=== PATIENT | male | born 1945 | race African-American/Black ===

== ENCOUNTER 2017-07-22 04:04 | Inpatient (IN) | payer OTHER ==
[~2017-07-22] VITALS: Ht 175.3 cm; Wt 102.1 kg
[~2017-07-22 04:04] MED LIST: ASPIR 8181 MG PO; ATORVASTATIN CA40 MG PO; CARVEDILOL3.125 MG PO; CARVEDILOL6.25 MG PO; COREG6.25 MG PO; COUMADIN 5 MG TA5 M1 PO; LANTUS100 UNIT/M SUBQ; LIORESAL 10 MG10 MG PO; LIPITOR 20 MG T20 M1 PO; LISINOPRIL; LISINOPRIL40 MG PO; METFORMIN HCL500 MG PO; NIFEDIPINE ER30 MG PO; NOVOLIN R100 UNIT/1 SUBQ; ZOCOR20 MG
[2017-07-22 04:07] VITALS: BP 188/95
[2017-07-22 04:27] LABS: ABSOLUTE EOSINOPHILS 0.1 thou/uL (0.0-0.7); ABSOLUTE LYMPHOCYTES 2.5 thou/uL (0.8-5.3); ABSOLUTE MONOCYTES 0.6 thou/uL (0.0-1.2); ABSOLUTE NEUTROPHILS 4.9 thou/uL (1.6-8.1); BASOPHILS 0.5 %; EOSINOPHILS 0.8 %; HEMATOCRIT 38.5 % (42.0-52.0); HEMOGLOBIN 12.8 gm/dL (14.0-18.0); MCH 29.1 pg (26.0-34.0); MCHC 33.2 g/dL (28.0-37.0); MCV 87.7 fL (80.0-100.0); MONOCYTES 6.9 %; MPV 8.5 fl. (7.2-11.1); NUCLEATED RBCS 0 /100WBC; PLATELET COUNT* 330 thou/uL (150-400); POLYS 60.8 %; RDW-CV 14.3 % (10.5-14.5); WBC 8.1 thou/uL (4.0-11.0)
[2017-07-22 04:31] LABS: CALCIUM 9.3 mg/dL (8.5-10.1); CREATININE 1.3 mg/dL (0.6-1.3); POTASSIUM 4.7 mmol/L (3.5-5.1)
[2017-07-22 04:41] LABS: APTT 31.7 Seconds (25.0-31.3); INR 2.6; PROTIME 24.8 Seconds (9.20-11.50)
[2017-07-22 04:42] LABS: ALBUMIN 3.2 g/dL (3.4-5.0); TOTAL BILIRUBIN 0.3 mg/dL (<0.1-1.0); TOTAL PROTEIN 7.3 g/dL (6.4-8.2); TROPONIN-I LEVEL 0.07 ng/mL (<0.06)
[2017-07-22 05:55] VITALS: BP 132/85
[2017-07-22 06:00] VITALS: BP 127/66
[2017-07-22] MEDS ORDERED: ZESTRIL40 MG PO (06:18)
[2017-07-22] MEDS ORDERED: BRILINTA90 MG PO (06:19)
--- NOTE | 2017-07-22 07:03 | NUR ---
PATIENT TO UNIT FROM ER, ASSUMED CARE AT 0600. ADMISSION COMPLETED CHARTED. PATIENT ALERT/ORIENTED X4, FAMILY AT BEDSIDE. MEDS GIVEN PER MAR. DENIES PAIN OR NEEDS. UP AD LANCE IN ROOM. REFUSING SCD'S. ORIENTED TO CALL LIGHT, STAFF, AND BED CONTROLS. CALL LIGHT WITHIN REACH, ENCOURAGED TO CALL FOR NEEDS.
--- NOTE | 2017-07-22 07:52 | NUR ---
MALINA, INCINERATOR ATTENDANT ON FLOOR, NOTIFIED OF ELEVATED TROPONIN. REPORT GIVEN TO ONCOMING NURSE. REMAINS NPO. WILL MONITOR.
[2017-07-22 08:03] VITALS: BP 123/79
[2017-07-22 09:22] LABS: CHOLESTEROL 118 mg/dL (<200); HDL CHOLESTEROL 35 mg/dL (>40); LDL CHOLESTEROL 72 mg/dL (<100); TC:HDL 3.4 Ratio (Not establshd); TRIGLYCERIDE 56 mg/dL (<150); VLDL 11 mg/dL (<40)
[2017-07-22 09:23] LABS: SERUM ASSESSMENT Clear
--- NOTE | 2017-07-22 10:13 | NUR ---
ASSUMED CARE OF PT THIS AM AROUND 0715- DIAGNOSTICS TECH IN PLACE ORDERED, TRACING SR WITH PVC'S- UPON ASSESSMENT PT NOTED TO BE RESTING IN BED, FAMILY AT SIDE- PT A&0 X4- CONTINENT OF BOWEL AND BLADDER- UP AD-LANCE IN ROOM, STEADY GAIT NOTED- LCTA, RESP EVEN AND UN-LAABORED- DYSPNEA REPORTED ON EXERTION- VSS, O2 SAT 93% ON RA-ABDOMEN SOFT/ROUND/NON-TENDER, BS X4 QUADS- PT REPORTS LAST BM 07/21/17- TRACE EDEMA NOTED TO BLE- HX STENT PLACED X1 WEEK AGO, RIGHT GROIN C/D/I WITH OUT HEMATOMA- IV NOTED TO RIGHT HAND, SL- BS MONITORED ORDERED- PT CURRENTLY NPO PENDING CV CONSULT- SSI HELD THIS AM R/T NPO STATUS, METFORMIN CURRENTLY ON HOLD R/T CTA WITH CONTRAST THIS AM- PT DENIES ANY C/O PAIN/DISCOMFORT AT THIS TIME- CALL LIGHT AND PERSONAL BELONGINGS WITH IN REACH0 HOURLY ROUNDS IN PLACE R/T SAFETY/NEEDS- ALL NEEDS MET AT THIS TIME-WCTM
[2017-07-22 12:00] VITALS: BP 120/72
--- NOTE | 2017-07-22 14:35 | NUR ---
CM SPOKE TO THE PATIENT TO DISCUSS HOME SITUATION, DISCHARGE PLANNING, AND TO INFORM OF THE ROLE OF CM. PATIENT ALERT AND ORIENTED. PATIENT RESIDES AT HOME WITH . PATIENT OWNS 0 DME. PATIENT HAS NO HX OF OR SNF. PATIENT PLANS TO RETURN HOME AT DISCHARGE. CM WILL REMAIN AVAILABLE TO ASSIST AND FOLLOW NEEDED.
--- NOTE | 2017-07-22 15:26 | EKG ---
[place] [address] ELECTROCARDIOGRAM REPORT Name: CARLOS DICKSON Room: [address] ADM IN .R.#: [id number] Admission: 07/22/17 Attend Phys: Carlos Small MD Discharge: Date of : 43 Report #: [id number] THIS REPORT FOR: //name// [facility] ED Test Date: 2017-07-22 Test Time: 04:05:34 Pat Name: CARLOS DICKSON Department: Room: [facility] Gender: M Graduate Advisor: : 1945 Requested By: Leonard Hernández Order Number: [id number] MD: Rodney Nash Measurements Intervals [place] Rate: 106 P: 46 LA: 179 QRS: 17 QRSD: 84 T: 176 QT: 358 QTc: 476 Interpretive Statements Sinus tachycardia Probable left atrial enlargement Abnrm T, consider ischemia, anterolateral lds Minimal ST elevation, lateral leads Compared to ECG 07/07/2017 11:02:58 Possible ischemia now present ST (T wave) deviation now present Sinus rhythm no longer present Myocardial infarct finding no longer present Electronically Signed On 07-22-2017 15:26:22 AIRCRAFT CLEAN[employer] by Rodney Nash [email or web address] <ELECTRONICALLY SIGNED> By: Rodney Nash MD, FAC 07/22/17 1526 0405 0405 Rodney aNsh MD, [facility] /EPI
--- NOTE | 2017-07-22 16:06 | CARDNUC ---
[place] [address] CARDIAC NUCLEAR IMAGING REPORT Name: CARLOS DICKSON Room: [address] IN [facility]#: [id number] Admission: 07/22/17 Attend Phys: Carlos Small, Discharge: Date of : 43 Date of Service: 07/22/17 1606 Report #: [id number] THIS REPORT FOR: //name// APPROVED REPORT Exam: Nuclear Stress Test Indication: Dyspnea, shoulder pain, elevated troponin Patient Location: In-Patient Stress Tech: Drea Dent Stress Nurse: Nia Hassan RN Ht: 5 ft 9 in Wt: 225 lbs BSA: 2.17 m2 BMI: 33.2 Medical History Medical History: mi, pci, age, hyperlipidemia, htm dm family history Medications: carvedilol, aspirin, atrovastatin, lisinopril, ticagrelor Allergies: nkda Cardiac Risk Factors: Age, FHX of CAD, HTN, Hyperlipidemia, Past Smoker Previous Cardiac Procedures: PCI, Myocardial infarction consulted with anna giron np and dr nash regarding elevated troponin. Okay to do stress test per both NM EXAM: Myocardial Perfusion REST/STRESS Imaging Protocol: Stress Tc-99m/Rest Tc-99m 2 days Pharmacologic Stress Pharmacologic stress test was performed by injecting Regadenoson 0.4 mg IV push followed by the intravenous injection of 38.4 mCi of Tc-99m Sestamibi. Time of stress injection: 1315 Date: 07/22/2017 Administration Route: IV Administration Site: Left AC Gated Stress SPECT was performed 45 minutes after stress injection. The images were gated to evaluate regional wall motion and calculate left ventricular ejection fraction. Prone imaging was performed. Study Quality Study: Good Artifact: [place] [address] CARDIAC NUCLEAR IMAGING REPORT Name: CARLOS DICKSON Room: [address] IN ..#: [id number] Admission: 07/22/17 Attend Phys: Carlos Small, Discharge: Date of : 43 Date of Service: 07/22/17 1606 Report #: [id number] Lung Uptake: Normal Study Data Post stress, the left ventricular ejection was 25%.. Perfusion There is a large, severe distal anterior wall and apical defect with uniform perfusion in other segments. It is severe in intensity. Wall Motion Apical severe hypokinesis and global LV dysfunction Nuclear Conclusion ECG Findings: negative for ischemia Clinical Findings: negative for ischemia Nuclear Findings: positive for ischemia Exercise Capacity: not assessed Left Ventricular Function: abnormal Risk Study: high There is concern for prior anterior and apical myocardial infarction and LV dysfunction is present Interpreted by: ceci Electronically Approved: ceci Stress Test Details Stress Test: Pharmacologic stress testing performed using 0.4 mg of regadenoson per 5 mL given IV over 10 seconds. Reason for pharmacologic stress test: physical limitation. HR Resting HR: 83 bpm Max Heart Rate (APMHR): 147 bpm Max HR Achieved: 94 bpm Target HR (85% APMHR): 124 bpm % of APMHR: 63 Recovery HR: 94 bpm BP Resting BP: 121/84 mmHg Max BP: 113/72 mmHg ECG Clinical Reason for Termination: Completed protocol Stress Symptoms: [place] [address] CARDIAC NUCLEAR IMAGING REPORT Name: CARLOS DICKSON Room: [address]#: [id number] Admission: 07/22/17 Attend Phys: Carlos Small, Discharge: Date of : 43 Date of Service: 07/22/17 160 Report #: [id number] Exercise duration: 0 min sec Exercise capacity: 1 METs Functional Aerobic Impairment 64% Nurse Comments pt tolerated well. pt had numerous pvc,s and pac,s during test. non symptomatic <ELECTRONICALLY SIGNED> By: Rodney Nash MD, [facility] 07/22/17 1606 05 1606 Rodney Nash MD, FACC /INF
--- NOTE | 2017-07-22 19:06 | NUR ---
PT CURRENLTY RESTING IN BED, FAMILY AT SIDE VISITTING- REGIONAL VICE PRESIDENT LIFE SALES IN PLACE ORDERED, TRACING SR- 1ST PART STRESS TEST COMPLETED THIS SHIFT, WITH ABNORMAL RESULTS- VITAMIN K X1 ORDERED AND GIVEN THIS SHIFT, COUMADIN HELD THIS SHIFT- POSSIBLE CATH IN AM, PT TO BE NPO AT MIDNIGHT- IV NOTED TO RIGHT HAND AND NEW PLACED TO RIGHT FA INTACT AND FLUSHING WELL- PT DENIES ANY C/O PAIN/DISCOMFORT AT THIS TIME- BS MONITORED ORDERED, SSI GIVEN PRESCIBED WITH DINNER, GOOD PO INTAKE NOTED- CALL LIGHT AND PERSONAL BELONGINGS WITH IN REACH- ALL NEEDS MET AT THIS TIME-WCTM
[2017-07-22 20:30] VITALS: BP 120/64
[2017-07-23] VITALS (14 sets, daily range): BP systolic 110–138; BP diastolic 60–93
[2017-07-23 05:06] LABS: HEMATOCRIT 37.4 % (42.0-52.0); HEMOGLOBIN 12.4 gm/dL (14.0-18.0); MCH 28.8 pg (26.0-34.0); MCHC 33.1 g/dL (28.0-37.0); MPV 8.7 fl. (7.2-11.1); RBC 4.29 mil/uL (4.50-6.00); RDW-CV 14.2 % (10.5-14.5); WBC 5.3 thou/uL (4.0-11.0)
[2017-07-23 05:11] LABS: INR 1.7; PROTIME 16.6 Seconds (9.20-11.50)
[2017-07-23 05:33] LABS: CALCIUM 9.7 mg/dL (8.5-10.1); CREATININE 1.2 mg/dL (0.6-1.3); MAGNESIUM 2.1 mg/dL (1.8-2.4); POTASSIUM 3.8 mmol/L (3.5-5.1)
--- NOTE | 2017-07-23 08:12 | NUR ---
ASSUMED CARE AT 2030, ASSESSMENT CHARTED. PATIENT ALERT/ORIENTED X4, RESTING IN BED. UP AD LANCE IN ROOM. DENIES PAIN OR NEEDS. NPO AFTER MIDNIGHT FOR POSSIBLE CATH IN AM. REFUSING SCD'S. AT BEDSIDE. CALL LIGHT WITHIN REACH, ENCOURAGED TO CALL FOR NEEDS.
--- NOTE | 2017-07-23 09:03 | NUR ---
PATIENT RESTING IN BED. REMAINS NPO. REPORT GIVEN TO ONCOMING NURSE.
--- NOTE | 2017-07-23 11:08 | NUR ---
ASSUMED RESPONSIBILITY OF PT THIS AM PT LAYING IN BED UPON ARRIVAL DENIES ANY PAIN OR DISCOMFORT AT THIS TIME ALERT AND ORIENTEDX4 AT BEDSIDE NS STARTED AT 75/H LOADING DOSE OF [place] LSCTA RESP EVEN AND NONLABORED [id number] ABD SOFT AND NONTENDER LBM T-1 PT IS NSR ON THE MONITOR PVCS NOTED WELL AND SOME TRIGEMINY NOTED AT TIMES NOTHING BY MOUTH FOR POSSIBLE CATH/STENT THIS AFTERNOON, PLAN ON GETTING HIM IN AN HOUR OR SO METFORMIN IS ON HOLD BS IS 70 AND ORANGE JUICE GIVEN PER CARDIOLOGY NURSE PT IS UP AD LANCE NOT A FALL RISK DENIES ANY SOA
--- NOTE | 2017-07-23 18:04 | NUR ---
PT BACK FROM ROOFING LABORER RIGHT GROIN ANGIOSEAL PT DID GET UP TO GO TO THE BATHROOM REMINDED PT HE WAS ON BEDREST FOR 5 HOURS UNTIL 1830 NO BLEEDING OR HEMATOMA FROM THE CATH SITE BS 202 AT DINNER AND INSULIN GIVEN 3U PT DENIES ANY PAIN OR DISCOMFORT 2 STENTS WERE PLACED IN THE DISTAL LAD
[2017-07-24] VITALS: BP 131/82
[2017-07-24 04:48] VITALS: BP 133/76
[2017-07-24 04:53] LABS: INR 1.2
[2017-07-24 04:56] LABS: HEMATOCRIT 35.8 % (42.0-52.0); MCHC 33.4 g/dL (28.0-37.0); MCV 86.6 fL (80.0-100.0); MPV 8.8 fl. (7.2-11.1); RBC 4.13 mil/uL (4.50-6.00); RDW-CV 14.2 % (10.5-14.5); WBC 4.8 thou/uL (4.0-11.0)
[2017-07-24 04:57] LABS: CALCIUM 9.4 mg/dL (8.5-10.1); CREATININE 1.1 mg/dL (0.6-1.3); MAGNESIUM 2.2 mg/dL (1.8-2.4); POTASSIUM 3.5 mmol/L (3.5-5.1); TROPONIN-I LEVEL 0.1 ng/mL (<0.06)
--- NOTE | 2017-07-24 05:20 | NUR ---
ASSUMED PT CARE AT 1930, PT IS TRACING MNSR ON THE MONITOR, WITH FREQ PVCS. PT IS ON RA SATTING MID TO HIGH 90'S. IVF INFUSING PER MAR. BED IN LOW POSITION, CALL LIGHT IN REACH. PT HAS A CATH ENTRY SITE TO RIGHT GROIN, GROIN IS CDI. HOURLY ROUNDING COMPLETED FOR PT SAFETY.
[2017-07-24 08:05] VITALS: BP 132/81
--- NOTE | 2017-07-24 09:28 | NUR ---
ASSUMED RESPONSIBILITY OF PT THIS AM PT IS ALERT AND ORIENTED X4 UP AD LANCE PT C/O BLOODY STOOLS BRIGHT RED BLOOD IN BM SOFT RIGHT GROIN WITHOUT BLEEDING INTACT SKIN APPROPRIATE FOR RACE DRY IV FLUIDS CONTINUE AT 75ML/H AT BEDSIDE BS 56 THIS AM AND JUICE GIVEN PT DID NOT HAVE S/SX OF HYPOGLYCEMIA DENIES ANY PAIN OR DISCOMFORT
--- NOTE | 2017-07-24 11:01 | CARD ---
[address] [address] CARDIAC CATH REPORT Name: CARLOS DICKSON [place] Room: [facility] IN ..#: [id number] Admission: 07/22/17 Attend Phys: Carlos Small MD Discharge: Date of : 43 Report #: [id number] THIS REPORT FOR: //name// APPROVED REPORT Patient Details Patient Status: In-Patient Room #: 229 The patient is a 72 year-old male Event Personnel Andreas Contreras Trade Clerk, Rani Ku RN, Polo Mcclure, Di Todd RN Monitor Procedures Performed Coronary Angiography, PTCA with Stenting Indication Non-STEMI , Positive stress test, Chest pain Risk Factors Hypercholesterolemia, Hypertension Previous Procedures/Diagnoses Previous PCI, Previous [place] Admission/Lab Medications/Medications given during procedure Aspirin, Platelet Aff. Inhib., Angiomax bolus and infusion Procedure Narrative The patient was brought urgently to the Cardiac Catheterization Laboratory and was prepped and draped in a sterile manner. The right femoral was infiltrated with 1% Lidocaine subcutaneous anesthesia. A [place] 6 FR sheath was inserted into the right femoral artery. Coronary angiography was performed using coronary diagnostic catheters. The right coronary system was accessed and visualized with a Diagnostic catheter. The left coronary system was accessed and visualized with a Diagnostic catheter. Pre-demployment femoral angiogram was performed . Closure device was deployed with a 8 Fr Angioseal. The patient tolerated the procedure well and there were no complications associated with the procedure. There was no hematoma. Intraoperative Conscious Sedation Fentanyl --25 mcg [facility] [address] [place] [address] CARDIAC CATH REPORT Name: CARLOS DICKSON Room: [address] IN [facility].#: [id number] Admission: 07/22/17 Attend Phys: Carlos Small MD Discharge: Date of : 43 Report #: [id number] Dose: 2373 mGy Contrast Type and Amount: Visipaque 285 ml Coronary Angiography The patient's coronary anatomy is right dominant. Diagnostic Cath Left Main 0% narrowing LAD Widely patent mid LAD stent with 75% distal LAD stenosis with local dye density difference suggesting thrombus at the site Diagonal 1 40% mid vessel narrowing Circumflex 0% narrowing Right Coronary Dominant vessel with 30% proximal mid and distal narrowings Left Ventriculography Left Ventriculography was not performed. Hemodynamics The aortic pressure is 126/79 mmHg with a mean of 98 mmHg. PCI Technique Lesion Anticoagulation was achieved with Angiomax. Percutaneous coronary intervention was performed on the distal left anterior descending artery segment. The lesion stenosis prior to intervention was 75% with NATALIE 3 flow. A 6FR XB 3.5 100CM Guide Catheter was used to engage the left ostium. A IG: ProwaterFlex 180CM Interventional Guidewire was used to cross the lesion. BALLOON DILATION A Balloon catheter Trek RX 2.25 X 12 was inserted and inflated up to 10atm for 15seconds. Repeat angiography revealed the following post-dilatation results: 20% residual narrowing. STENT DEPLOYMENT A drug-eluting stent Xience Alpine RX 2.5X15, 2.5x12 was inserted and inflated up to 14atm for 12seconds. Final angiography reveals 0 % stenosis with NATALIE 3 flow. Conclusion #1 significant coronary artery disease characterized by the following: A 75% distal LAD narrowing [place] [address] CARDIAC CATH REPORT Name: CARLOS DICKSON Room: [address] IN ..#: [id number] Admission: 07/22/17 Attend Phys: Carlos Small MD Discharge: Date of : 43 Report #: [id number] suggesting thrombus with 40% mid first diagonal narrowing, B 30% proximal mid and distal narrowing of the dominant right coronary artery #2 normal systemic pressure throughout the study, #3 successful percutaneous coronary intervention with deployment of sequential drug-eluting stents at the site of 75% distal LAD narrowing with 0% residual narrowing following stent deployment and NATALIE-3 flow the distal vessel with no residual thrombus noted. Recommendations Aggressive Medical Therapy Medications Administered Ticagrelor <ELECTRONICALLY SIGNED> By: Andreas Contreras MD, [facility] 07/24/17 1101 1101 1101Joaury Contreras MD, FACC /INF
--- NOTE | 2017-07-24 13:12 | EKG ---
[place] [address] ELECTROCARDIOGRAM REPORT Name: CARLOS DICKSON Room: [address] ADM IN M.R.#: [id number] Admission: 07/22/17 Attend Phys: Carlos Small MD Discharge: Date of : 43 Report #: [id number] THIS REPORT FOR: //name// [facility] Test Date: 2017-07-24 Test Time: 09:02:27 Pat Name: CARLOS DICKSON Department: Room: [address] Gender: M Help Desk Administrator: 27 : 1945 Requested By: Andreas Contreras Order Number: [id number] Reading MD: Rodney Nash Measurements Intervals [place] Rate: 82 P: 24 MT: 172 QRS: -7 QRSD: 84 T: 171 QT: 416 QTc: 486 Interpretive Statements Sinus rhythm Probable left atrial enlargement Probable anterior infarct, age indeterminate Lateral leads are also involved Compared to ECG 07/22/2017 04:05:34 Myocardial infarct finding now present Sinus tachycardia no longer present Possible ischemia no longer present ST (T wave) deviation no longer present Electronically Signed On 07-24-2017 13:12:39 SPECIAL EVENTS PLANNER by Rodney Nash [email or web address] <ELECTRONICALLY SIGNED> By: Rodney Nash MD, FACC 07/24/17 1312 0902 0902 Rodney Nash MD, FACC /EPI
[2017-07-24 13:22] VITALS: BP 121/76
[2017-07-24 16:30] VITALS: BP 141/83
[2017-07-24 20:00] VITALS: BP 160/64
[2017-07-25] VITALS (7 sets, daily range): BP systolic 128–152; BP diastolic 69–78
--- NOTE | 2017-07-25 04:46 | NUR ---
ASSUMED PT CARE AT 1930, PT IS A&OX4, PT DENIES ANY PAIN OR NEEDS AT THIS TIME. PT IS TRACING NSR ONT HE MONITOR, ON RA SATTING MID TO HIGH 90'S. PT REFUSED STOOL AT THE START OF SHIFT, IS NO REQUESTIGN STOOL SOFTNER, WILL GIVEN AM COLACE WITH MORNING MED PASS. PT IS UP AD LANCE IN HIS ROOM. BED IN LOW POSITION, CALL LIGHT IN REACH,PT HAD A CARDIAC CATH ENTRY POINT TO THE RIGHT GROIN, CATH SITE IS CDI. HOURLY ROUNDING COMPLETED FOR PT SAFETY.
[2017-07-25 04:57] LABS: HEMATOCRIT 36.4 % (42.0-52.0); HEMOGLOBIN 11.7 gm/dL (14.0-18.0); MCH 28.5 pg (26.0-34.0); MCHC 32.2 g/dL (28.0-37.0); MCV 88.6 fL (80.0-100.0); MPV 8.4 fl. (7.2-11.1); RBC 4.1 mil/uL (4.50-6.00); RDW-CV 14.3 % (10.5-14.5); WBC 4.8 thou/uL (4.0-11.0)
[2017-07-25 05:12] LABS: INR 1.2; PROTIME 11.8 Seconds (9.20-11.50)
[2017-07-25 05:27] LABS: ALBUMIN 2.8 g/dL (3.4-5.0); POTASSIUM 3.9 mmol/L (3.5-5.1); TOTAL BILIRUBIN 0.4 mg/dL (<0.1-1.0)
--- NOTE | 2017-07-25 11:00 | NUR ---
ASSUME CARE OF PT. PT SITTING ON SIDE OF THE BED REPORTS SOA AND COUGH. LUNGS COARSE IN UPPER LOBES. DR CASAREZ AWARE. TREATMENTS ORDERED
[2017-07-25] MEDS ORDERED: PROTONIX40 M2 PO (15:10)
[2017-07-25] MEDS ORDERED: PREDNISONE 10 M10 MG PO (15:12)
[2017-07-25] MEDS ORDERED: DOXYCYCLINE 10100 M2 PO (15:13)
--- NOTE | 2017-07-25 17:00 | NUR ---
PT UP IN ROOM THROUGHOUT SHIFT. REPORTS SOA THIS AFTERNOON BUT IMPROVED WITH BREATHING TX. DENIES PAIN
[2017-07-26] VITALS: BP 135/73
--- NOTE | 2017-07-26 02:30 | NUR ---
RESTING WITHOUT COMPLAINTS. SLEEPING ON COT. DENIED ANY COMPLAINTS OF PAIN OR DISCOMFORT. NO SIGNS OF DISTRESS. CONT. TO BE SR ON MONITOR. DC IN AM
[2017-07-26 03:00] VITALS: BP 148/66
[2017-07-26 04:59] LABS: HEMATOCRIT 38.2 % (42.0-52.0); HEMOGLOBIN 12.7 gm/dL (14.0-18.0); MCH 28.9 pg (26.0-34.0); MCHC 33.2 g/dL (28.0-37.0); MCV 87.2 fL (80.0-100.0); MPV 8.8 fl. (7.2-11.1); RBC 4.38 mil/uL (4.50-6.00); RDW-CV 14.2 % (10.5-14.5); WBC 8.1 thou/uL (4.0-11.0)
[2017-07-26 05:14] LABS: INR 1.4; PROTIME 13.6 Seconds (9.20-11.50)
[2017-07-26 05:36] LABS: CALCIUM 9.6 mg/dL (8.5-10.1); MAGNESIUM 2.2 mg/dL (1.8-2.4); POTASSIUM 3.7 mmol/L (3.5-5.1)
[2017-07-26 08:25] VITALS: BP 129/70
[2017-07-26 12:00] VITALS: BP 131/70
--- NOTE | 2017-07-26 14:30 | NUR ---
PT RESTING IN BED THIS AM WITH AT BEDSIDE. PT HAD BLOOD GLUCOSE OF 63 AND WAS GIVEN JUICE. RECHECK WAS 110. VS OBTAINED, WNL. SR ON MONITOR. ASSESSMENT COMPLETE. DISCHARGE TODAY, ORDERS COMPLETE. DISCHARGE INSTRUCTIONS AND MED LIST REVIEWED WITH PATIENT AND . QUESTIONS ANSWERED TO PT SATISFACTION. PT IN POSSESSION OF ALL BELONGINGS. IV AND MONITOR DISCONTINUED. PT LEFT UNIT WITH NURSING STAFF VIA WC. SPOUSE TO TRANSPORT PT HOME VIA PERSONAL CAR.
== END 2017-07-26 13:50 | disposition home or self-care (01) | DRG 246 ==
LOC: M.ERS 04:04 → M.TBA-ER 05:12 → M.2W 05:12
PROVIDERS: Emergency Medicine; Internal Medicine; ADMIT Internal Medicine
PROC: 4A023N7 Measurement of Cardiac Sampling and Pressure, Left Heart, Percutaneous Approach (ICD-10-PCS; principal; 2017-07-24)
PROC: B2151ZZ Fluoroscopy of Left Heart using Low Osmolar Contrast (ICD-10-PCS; principal; 2017-07-24)
PROC: B2111ZZ Fluoroscopy of Multiple Coronary Arteries using Low Osmolar Contrast (ICD-10-PCS; principal; 2017-07-24)
PROC: 027035Z Dilation of Coronary Artery, One Artery with Two Drug-eluting Intraluminal Devices, Percutaneous Approach (ICD-10-PCS; principal; 2017-07-24)
DX: I21.4 Non-ST elevation (NSTEMI) myocardial infarction (principal); I50.43 Acute on chronic combined systolic (congestive) and diastolic (congestive) heart failure; I13.0 Hypertensive heart and chronic kidney disease with heart failure and stage 1 through stage 4 chronic kidney disease, or unspecified chronic kidney disease; K62.5 Hemorrhage of anus and rectum; J98.01 Acute bronchospasm; I25.5 Ischemic cardiomyopathy; N18.2 Chronic kidney disease, stage 2 (mild); E66.9 Obesity, unspecified; I35.1 Nonrheumatic aortic (valve) insufficiency; I25.110 Atherosclerotic heart disease of native coronary artery with unstable angina pectoris; E11.9 Type 2 diabetes mellitus without complications; E78.00 Pure hypercholesterolemia, unspecified; I25.2 Old myocardial infarction; Z95.5 Presence of coronary angioplasty implant and graft; Z85.46 Personal history of malignant neoplasm of prostate; Z68.33 Body mass index [BMI] 33.0-33.9, adult; Z90.49 Acquired absence of other specified parts of digestive tract; Z79.01 Long term (current) use of anticoagulants; Z79.4 Long term (current) use of insulin; Z79.82 Long term (current) use of aspirin; Z79.84 Long term (current) use of oral hypoglycemic drugs; Z79.899 Other long term (current) drug therapy; Z82.49 Family history of ischemic heart disease and other diseases of the circulatory system; Z80.8 Family history of malignant neoplasm of other organs or systems

== ENCOUNTER → 2017-12-26 | Outpatient (CLI) | payer OTHER ==
[~2017-12-26] MED LIST changes: +BRILINTA90 MG PO; +DOXYCYCLINE 10100 M2 PO; +PREDNISONE 10 M10 MG PO; +PROTONIX40 M2 PO; +ZESTRIL40 MG PO
--- NOTE | 2017-12-26 16:04 | 2DMMODE ---
[place] [address] 2 D/M-MODE ECHOCARDIOGRAM Name: DICKSONCARLOS Room: [facility]#: [id number] Admission: 12/26/17 Attend Phys: Jesus Manuel Batista, Discharge: Date of : 43 Date of Service: 12/26/17 1604 Report #: [id number] THIS REPORT FOR: //name// APPROVED REPORT Study performed: 12/26/2017 15:03:24 EXAM: Comprehensive 2D, Doppler, and color-flow Echocardiogram Patient Location: Out-Patient BSA: 2.13 HR: 80 bpm BP: 130/68 mmHg Other Information Study Quality: Good Indications Cardiomyopathy 2D Dimensions IVSd: 11.92 (7-11mm) LVOT Diam: 20.59 (18-24mm) LVDd: 44.87 mm PWd: 11.53 (7-11mm) Ascending Ao: 27.83 (22-36mm) LVDs: 24.97 (25-40mm) Aortic Root: 32.57 mm Volumes Left Atrial Volume (Systole) LA ESV Index: 31.10 mL/m2 Aortic Valve AoV Peak Abdulkadir.: 1.88 m/s AO Peak Gr.: 14.17 mmHg LVOT Max P.43 mmHg AO Mean Gr.: 7.63 mmHg LVOT Mean P.24 mmHg LVOT Max V: 1.05 m/s AO V2 VTI: 35.35 cm LVOT Mean V: 0.70 m/s PERRI (VTI): 2.11 cm2 LVOT V1 VTI: 22.42 cm Mitral Valve E/A Ratio: 0.88 MV Decel. Time: 225.84 ms MV E Max Abdulkadir.: 1.01 m/s MV PHT: 65.49 ms MVA (PHT): 3.36 cm2 [place] [address] 2 D/M-MODE ECHOCARDIOGRAM Name: CARLOS DICKSON Room: [facility]#: [id number] Admission: 12/26/17 Attend Phys: Jesus Manuel Batista, Discharge: Date of : 43 Date of Service: 12/26/17 1604 Report #: [id number] TDI E/Lateral E': 11.22 E/Medial E': 20.20 Medial E' Abdulkadir.: 0.05 m/s Lateral E' Abdulkadir.: 0.09 m/s Pulmonary Valve PV Peak Abdulkadir.: 1.05 m/s PV Peak Gr.: 4.39 mmHg Tricuspid Valve TR Peak Gr.: 15.30 mmHg RVSP: 20.30 mmHg Left Ventricle The left ventricle is normal size. moderate hypokinesis of the distal anteroseptal wall and apex Mild concentric left ventricular hypertrophy. Left ventricular systolic function is mildly decreased. LVEF is 45-50%. Grade I - abnormal relaxation pattern. Right Ventricle The right ventricle is normal size. The right ventricular systolic function is normal. Atria Left atrium is mildly dilated. The right atrium size is normal. Aortic Valve Aortic valve leaflets are mildly thickened. No aortic regurgitation is present. There is no aortic valvular stenosis. Mitral Valve There is mild mitral annular calcification. Mild mitral regurgitation. No evidence of mitral valve stenosis. Tricuspid Valve The tricuspid valve is normal in structure. Mild tricuspid regurgitation. The RVSP is __20.3 mmHg. Pulmonic Valve The pulmonary valve is normal in structure. There is no pulmonic valvular regurgitation. Great Vessels The aortic root is normal in size. IVC is normal in size and collapses with >50% [place] [address] 2 D/M-MODE ECHOCARDIOGRAM Name: CARLOS DICKSON Room: [facility]#: [id number] Admission: 12/26/17 Attend Phys: Jesus Manuel Batista, Discharge: Date of : 43 Date of Service: 12/26/17 1604 Report #: [id number] Pericardium There is no pericardial effusion. <Conclusion> LVEF is 45-50%. moderate hypokinesis of the distal anteroseptal wall and apex Left atrium is mildly dilated. Mild concentric left ventricular hypertrophy. Mild mitral regurgitation. <ELECTRONICALLY SIGNED> By: Eagle Donahue MD, [facility] 12/26/17 1604 03 03 Eagle Donahue MD, [facility] /INF
== END ==
LOC: M.CRD 12-14 10:00
DX: I08.1 Rheumatic disorders of both mitral and tricuspid valves (principal); I25.10 Atherosclerotic heart disease of native coronary artery without angina pectoris